=== PATIENT | male | born 1960 | race Caucasian/White ===

== ENCOUNTER 2017-10-26 07:07 | Day surgery (SDC) | payer MEDICARE, OTHER ==
[2017-10-26] MEDS ORDERED: CEFAZOLIN 2 GM/50 ML (PMX) 50 ML IVPB (07:30)
[2017-10-26 09:15] LABS: ADD MAN DIFF? NO
[2017-10-26 09:21] LABS: INR 0.88; PT RATIO 0.9
[2017-10-26 09:22] LABS: PARTIAL THROMBOPLASTIN TIME 31.5 Sec (25.0-35.0)
[2017-10-26 09:23] LABS: BASOPHILS % 0.5 % (0.0-2.0); EOSINOPHILS # 0.2 10^3/ul (0.0-0.5); EOSINOPHILS % 2.3 % (0.0-7.0); HEMATOCRIT 43.6 % (42.0-52.0); HEMOGLOBIN 14.7 g/dl (14.0-18.0); LYMPHOCYTES # 2.9 10^3/ul (0.8-2.9); LYMPHOCYTES % 34.7 % (15.0-51.0); MEAN CORPUSCULAR HEMOGLOBIN 31.8 pg (29.0-33.0); MEAN CORPUSCULAR HGB CONC 33.7 g/dl (32.0-37.0); MEAN CORPUSCULAR VOLUME 94.4 fl (82.0-101.0); MEAN PLATELET VOLUME 11.7 fl (7.4-10.4); MONOCYTE # 0.7 10^3/ul (0.3-0.9); MONOCYTES % 8.8 % (0.0-11.0); NEUTROPHIL # 4.5 10^3/ul (1.6-7.5); NEUTROPHILS % 53.5 % (39.0-77.0); PLATELET COUNT 192 10^3/UL (140-415); RED BLOOD COUNT 4.62 10^6/ul (4.70-6.10); RED CELL DISTRIBUTION WIDTH 12.5 % (11.5-14.5)
[2017-10-26 09:23] LABS: WHITE BLOOD COUNT 8.3 10^3/ul (4.8-10.8)
[2017-10-26 09:31] LABS: ALANINE AMINOTRANSFERASE 34 IU/L (13-69); ALBUMIN 4.4 g/dl (3.3-4.9); ALBUMIN/GLOBULIN RATIO 1.25; ALKALINE PHOSPHATASE 91 IU/L (42-121); ANION GAP 19 (8-16); ASPARTATE AMINO TRANSFERASE 26 IU/L (15-46); BILIRUBIN,INDIRECT 0.2 mg/dl (0-1.1); BILIRUBIN,TOTAL 0.2 mg/dl (0.2-1.3); CARBON DIOXIDE 27 mmol/L (21-31); CHLORIDE 104 mmol/L (97-110); GLUCOSE 107 mg/dl (70-220); TOTAL PROTEIN 7.9 g/dl (6.1-8.1)
[2017-10-26 09:44] LABS: BLOOD UREA NITROGEN 13 mg/dl (7-20); CREATININE 0.71 mg/dl (0.61-1.24); POTASSIUM 3.9 mmol/L (3.5-5.1)
[2017-10-26 09:45] LABS: CALCIUM 9.7 mg/dl (8.4-10.2); SODIUM 146 mmol/L (135-144)
[2017-10-26] MEDS ORDERED: FAMOTIDINE 20 MG INJ IV (10:00)
[2017-10-26] MEDS ORDERED: HYDROCODONE/APAP (5/325) TAB PO (10:30)
[2017-10-26] MEDS ORDERED: morphine 2 MG INJ IV (10:30)
[2017-10-26] MEDS ORDERED: ONDANSETRON 4 MG INJ IV (10:30)
[2017-10-26] MEDS ORDERED: MIDAZOLAM 1 MG/ML 2 ML INJ (10:39)
[2017-10-26] MEDS ORDERED: GLYCOPYRROLATE 0.4 MG INJ (10:39)
[2017-10-26] MEDS ORDERED: ROCURONIUM 50 MG INJ (10:39)
[2017-10-26] MEDS ORDERED: CEFAZOLIN 1 GM INJ (10:39)
[2017-10-26] MEDS ORDERED: NEOSTIGMINE 3 MG/3 ML SYRINGE (10:39)
[2017-10-26] MEDS ORDERED: PROPOFOL 0 ML (10:39)
[2017-10-26] MEDS ORDERED: DEXAMETHASONE 4 MG/ML 1 ML INJ (10:40)
[2017-10-26] MEDS ORDERED: ONDANSETRON 4 MG INJ (10:40)
[2017-10-26] MEDS ORDERED: FENTAnyl 50 MCG/ML VIAL (10:40)
[2017-10-26] MEDS: BUPIVACAINE 0.25% (MPF) 30 ML INJ (11:12)
[2017-10-26] MEDS: LIDOCAINE 1%/EPI 30 ML INJ (11:12)
[2017-10-26] MEDS: BACITRACIN 0.9 GM OINT (11:24)
== END 2017-10-26 12:35 | disposition home or self-care (01) ==
LOC: SDS 07:07
DX: D22.39 Melanocytic nevi of other parts of face (principal); E11.9 Type 2 diabetes mellitus without complications; I10 Essential (primary) hypertension; E78.5 Hyperlipidemia, unspecified; Z85.828 Personal history of other malignant neoplasm of skin
CPT/HCPCS: 14060; 80053; 82962; 85025; 85610; 85730; 88305; 88307; 88331

== ENCOUNTER 2018-07-11 06:12 | Day surgery (SDC) | payer MEDICARE, OTHER ==
[2018-07-11] MEDS ORDERED: ONDANSETRON 4 MG INJ IV (08:00)
[2018-07-11] MEDS ORDERED: DIPHENHYDRAMINE 50 MG INJ IV (08:00)
[2018-07-11] MEDS ORDERED: LABETALOL HCL 20MG INJ IV (08:00)
[2018-07-11] MEDS ORDERED: OXYCODONE/ACETAMINOPHEN (5/325) TAB PO (08:00)
[2018-07-11] MEDS ORDERED: ALBUTEROL 0.083% (NEB) 2.5 MG/3 ML AMP HHN (08:00)
[2018-07-11] MEDS ORDERED: hydrALAzine 20 MG INJ IV (08:00)
[2018-07-11] MEDS: TROPICAMIDE 1% 3 ML OPH OPER (08:16)
[2018-07-11] MEDS: CYCLOPENTOLATE/PHENYLEPH 2 ML OPH OPER (08:16)
[2018-07-11] MEDS: MOXIFLOXACIN 0.5% 3 ML OPH OPER (08:17)
[2018-07-11] MEDS: DICLOFENAC 0.1% 2.5 ML OPH OPER (08:17)
[2018-07-11] MEDS ORDERED: DICLOFENAC 0.1% 2.5 ML OPH OPER ×2 (08:30)
[2018-07-11] MEDS: SOD CHLORIDE 0.9% 1,000 ML IV (08:39)
[2018-07-11] MEDS ORDERED: LIDOCAINE 2% (SDV) 5 ML INJ (08:58)
[2018-07-11] MEDS ORDERED: PROPOFOL 20 ML (08:58)
[2018-07-11] MEDS ORDERED: CARBACHOL 0.01% 1.5 ML OPH INJ (09:12)
[2018-07-11] MEDS: ACETAMINOPHEN 1000MG/100ML IV 100 ML IVPB (09:51)
[2018-07-11] MEDS: ACETAMINOPHEN 500 MG TAB PO (09:51)
== END 2018-07-11 11:00 | disposition home or self-care (01) ==
LOC: SDS 06:12
DX: H25.042 Posterior subcapsular polar age-related cataract, left eye (principal); I10 Essential (primary) hypertension; E11.9 Type 2 diabetes mellitus without complications; Z79.84 Long term (current) use of oral hypoglycemic drugs
CPT/HCPCS: 66984; 82962